=== PATIENT | male | born 1995 | race Caucasian/White ===

== ENCOUNTER 2019-03-09 11:40 | Emergency (ER) | payer BC, OTHER ==
[2019-03-09] MEDS ORDERED: DIPHENHYDRAMINE HCL 50 MG/ML VIAL IV ONE (11:59)
[2019-03-09] MEDS ORDERED: PROCHLORPERAZINE EDISYLATE INJ 10 MG/2 ML VIAL IV ONE (11:59)
[2019-03-09] MEDS ORDERED: NORMAL SALINE 1000 ML 1,000 ML IV ONE (11:59)
[2019-03-09] MEDS ORDERED: KETOROLAC TROMETHAMINE INJ/PF 30 MG/1 ML SDV IV ONE (11:59)
--- NOTE | 2019-03-09 12:01 | ER Document Report ---
ED Medical Screen (RME) - General Chief Complaint: Headache Stated Complaint: HEADACHE Time Seen by Provider: 03/09/19 11:57 Mode of Arrival: Ambulatory Information source: Patient Notes: Patient presents complaining of left-sided headache for the past week. Patient denies any head injury, nausea or vomiting. Patient denies any photophobia or phonophobia. Patient denies any significant medical history. I have greeted and performed a rapid initial assessment of this patient. A comprehensive ED assessment and evaluation of the patient, analysis of test results and completion of the medical decision making process will be conducted by additional ED providers. - Related Data Allergies/Adverse Reactions: No Known Allergies Allergy (Unverified 03/09/19 11:51) Past Medical History - Social History Chew tobacco use (# tins/day): No Drug Abuse: None Physical Exam - Vital signs Vitals: Temp Pulse Resp BP Pulse Ox 98.0 F 82 16 138/60 H 99 03/09/19 11:44 03/09/19 11:44 03/09/19 11:44 03/09/19 11:44 03/09/19 11:44 - Neurological Neuro grossly intact: Yes Cognition: Normal [place] Coma Scale Eye Opening: Spontaneous [place] Coma Scale Verbal: Oriented [place] Coma Scale Motor: Obeys Commands [place] Coma Scale Total: 15 Course - Vital Signs Vital signs: Temp Pulse Resp BP Pulse Ox 98.0 F 82 16 138/60 H 99 03/09/19 11:44 03/09/19 11:44 03/09/19 11:44 03/09/19 11:44 03/09/19 11:44
--- NOTE | 2019-03-09 12:41 | ER Document Report ---
ED Headache - General Chief Complaint: Headache Stated Complaint: HEADACHE Time Seen by Provider: 03/09/19 11:57 Mode of Arrival: Ambulatory Notes: HPI: 23-year-old male who states that slow development of a left frontal headache for around 1 week. He is currently visiting his family from [place]. He denies any head trauma, weakness or numbness, blurry vision, vomiting, or fevers. He denies any neck pain or stiffness. He denies a history of headaches. He denies any relieving factors but states noise and light does worsen symptoms. ROS: See HPI All other review of systems reviewed and otherwise negative Reviewed vital signs and nursing note as charted by RN. PHYSICAL EXAM: CONSTITUTIONAL: Alert and oriented and responds appropriately to questions. Well-appearing; well-nourished HEAD: Normocephalic; atraumatic EYES: PERRL; full extraocular range of motion; no nystagmus ENT: Normal nose; no rhinorrhea; moist mucous membranes; pharynx without lesions noted NECK: Supple without meningismus; non-tender; no cervical lymphadenopathy, no masses CARD: Regular rate and rhythm; no murmurs; symmetric distal pulses RESP: Normal chest excursion without splinting or tachypnea; breath sounds clear and equal bilaterally ABD/GI: Normal bowel sounds; non-distended; soft, non-tender BACK: The back appears normal and is non-tender to palpation EXT: Normal ROM in all joints; non-tender to palpation; no edema SKIN: No acute lesions noted NEURO: CN 2-12 intact; 5/5 bilateral upper and lower extremity strength with sensation intact to light touch PSYCH: The patient's mood and manner are appropriate. Grooming and personal hygiene are appropriate. TRAVEL OUTSIDE OF THE [place] IN LAST 30 DAYS: No - Related Data Allergies/Adverse Reactions: No Known Allergies Allergy (Unverified 03/09/19 11:51) Past Medical History - General Information source: Patient - Social History Smoking Status: Never Smoker Chew tobacco use (# tins/day): No Drug Abuse: None Family History: Reviewed & Not Pertinent Patient has suicidal ideation: No Patient has homicidal ideation: No Physical Exam - Vital signs Vitals: Temp Pulse Resp BP Pulse Ox 98.0 F 82 16 138/60 H 99 03/09/19 11:44 03/09/19 11:44 03/09/19 11:44 03/09/19 11:44 03/09/19 11:44 Course - Re-evaluation Re-evalutation: 03/09/19 12:41 Given the history and physical examination, with currently no focal neurological deficits, no blurry vision, no redness or swelling to the head or forehead, no history of headaches, will obtain a CT scan of the head and provide pain medications, I do believe acute bacterial meningitis, acute angle-closure glaucoma, subdural hematoma, subarachnoid hemorrhage, all to be extremely unlikely at this time. 03/09/19 14:59 CT scan of the head as recorded. Patient's headache is improved. Still no blurry vision, weakness or numbness. No vomiting. Still no focal neurological deficits. Patient is just visiting from out of town. He states he will follow- up with his doctor when he returns to [place]. Strict return precautions have been explained. - Vital Signs Vital signs: Temp Pulse Resp BP Pulse Ox 98.0 F 82 16 138/60 H 99 03/09/19 11:44 03/09/19 11:44 03/09/19 11:44 03/09/19 11:44 03/09/19 11:44 Discharge - Discharge Clinical Impression: Left-sided headache Condition: Good Disposition: HOME, SELF-CARE Additional Instructions: Come back immediately for any increased pain, change in location or quality of pain, fevers or vomiting, blurry vision, weakness or numbness, or any other acute problems. Please follow-up with the primary care physician when you return home as discussed. Prescriptions: Promethazine HCl [Phenergan 25 mg Tablet] 25 mg PO Q6H PRN #15 tablet PRN Reason:
--- NOTE | 2019-03-09 13:16 | RADIOLOGY REPORT (SQ) ---
EXAM DESCRIPTION: CT HEAD WITHOUT COMPLETED DATE/TIME: 03/09/2019 1:05 pm REASON FOR STUDY: 15; left sided headache for 1 week COMPARISON: None. TECHNIQUE: Axial images acquired through the brain without intravenous contrast. Images reviewed wi th bone, brain and subdural windows. Additional sagittal and coronal reconstructions were generated. Images stored on PACS. All CT scanners at this facility use dose modulation, iterative reconstruction, and/or weight based d osing when appropriate to reduce radiation dose to as low as reasonably achievable (ALARA). [facility]: Dose Right [facility]: CareDose [facility]: Dose Right [facility]: Teradose 4D [facility]: Smart Draftster RADIATION DOSE: mGy. LIMITATIONS: None. FINDINGS: VENTRICLES: Normal size and contour. CEREBRUM: No masses. No hemorrhage. No midline shift. No evidence for acute infarction. Normal gra y/white matter differentiation. No areas of low density in the white matter. CEREBELLUM: No masses. No hemorrhage. No alteration of density. No evidence for acute infarction. EXTRAAXIAL SPACES: No fluid collections. No masses. ORBITS AND GLOBE: No intra- or extraconal masses. Normal contour of globe without masses. CALVARIUM: No fracture. PARANASAL SINUSES: No fluid or mucosal thickening. SOFT TISSUES: No mass or hematoma. OTHER: No other significant finding. IMPRESSION: NORMAL BRAIN CT WITHOUT CONTRAST. EVIDENCE OF ACUTE STROKE: NO. COMMENT: Quality ID # [id number]: Final reports with documentation of one or more dose reduction techniques (e.g., Automated exposure control, adjustment of the mA and/or kV according to patient size, use of iterative reconstruction technique) TECHNICAL DOCUMENTATION: JOB ID: [id number] [employer] [facility] [employer]- All Rights Reserved Reading location - IP/workstation name: [email or web address]
[2019-03-09 15:10] VITALS: BP 124/61
== END 2019-03-09 15:13 | disposition home or self-care (01) ==
LOC: ER 11:40
DX: R51 Headache (principal)
CPT/HCPCS: 99284; 96361; 96374; 96375; 70450; J1200; J1885; J0780; J7030